=== PATIENT | female | born 2000 | race African-American/Black ===

== ENCOUNTER → 2019-04-17 10:48 | Outpatient (CLI) | payer BC, SELFPAY ==
[2019-04-17 11:19] LABS: Basophils % 0.2 % (0.1-2.0); Eosinophils # 0.1 K/mm3 (0.0-0.4); Eosinophils % 0.8 % (0.1-12.0); Hematocrit 35.9 % (37.0-47.0); Hemoglobin 13.2 g/dL (12.2-16.2); Mean Corpuscular HGB Conc 36.7 g/dL (31.8-35.4); Mean Corpuscular Hemoglobin 32.1 pg (27.0-31.2); Mean Corpuscular Volume 87.6 fl (81-99); Monocytes # 0.5 K/mm3 (0.1-1.0); Monocytes % 5.1 % (1.7-9.3); Neutrophils % 65.9 % (37.0-80.0); Platelet Count 315 K/mm3 (142-424); Red Cell Distribution Width 12.8 % (11.5-17.5); White Blood Count 10.6 K/mm3 (4.5-13.0)
[2019-04-18 11:08] LABS: Rapid Plasma Reagin Ab Titer Non Reactive (NonRea<1:1); Rubella Antibodies, IgG 1.19 index (Immune >0.99)
[2019-04-18 11:11] LABS: Hepatitis B Surface Antigen Negative (Negative); Hepatitis C Antibody <0.1 s/co ratio (0.0-0.9)
[2019-04-20 06:28] LABS: HIV Screen 4th Generation wRfx Non Reactive (Non Reactive)
[2019-04-20 19:03] LABS: Neisseria gonorrhoeae, NAA Negative (Negative)
== END ==
PROVIDERS: Visit Provider Nurse Practitioner Obstetrics & Gynecology
DX: Z34.90 Encounter for supervision of normal pregnancy, unspecified, unspecified trimester (principal)
CPT/HCPCS: 36415; 85025; 86592; 86703; 86762; 86850; 87340; 87380; 87491; 87591; G0432

== ENCOUNTER → 2019-04-26 15:13 | Outpatient (CLI) | payer BC, OTHER, SELFPAY ==
--- NOTE | 2019-04-26 15:13 | US_ITS ---
PROCEDURE: US OB <= 14 WEEKS FETUS CLINICAL INDICATION: US OB Dates Evaluate dates COMPARISON: No exams were available for comparison FINDINGS: The there is a single live fetus present. heart and body motion noted. Average ultrasound age is 13 weeks 6 days. Following parameters are obtained BPD 14 weeks 1 day, OFD 14 weeks 1 day, HC 14 weeks 0 day, AC 13 weeks 4 day, FL 13 weeks 6 day. [place]-rump length is 7.34 cm correlating to gestational age of 13 weeks 4 days. heart tones are 149 beats per minute. There is a 2.7 cm left corpus luteum cyst. IMPRESSION: Live intrauterine gestation at 13 weeks 6 days. This does not constitute a complete anatomy exam. Estimated due date by Ultrasound is 10/26/2019 Dictated by: Jareth Matos MD 04/26/2019 18:28 Electronically signed by Jareth Matos MD in [place] 04/26/2019 18:28
== END ==
PROVIDERS: PCP Family Medicine; Visit Provider Nurse Practitioner Obstetrics & Gynecology
DX: O26.841 Uterine size-date discrepancy, first trimester (principal)
CPT/HCPCS: 76801

== ENCOUNTER 2019-08-03 08:52 | Emergency (ER) | payer BC, MEDICAID, SELFPAY ==
[2019-08-03 08:53] VITALS: BP 132/66; PULSE 155; RESP 20; TEMP 36.7; O2SAT 96; BMI 32.1
--- NOTE | 2019-08-03 09:34 | HMH.EDSOB ---
ED Disposition Clinical Impression: Asthma with exacerbation, Viral URI, Viral URI with cough, Disposition: Home, Self-Care Condition on Discharge: Good Instructions: Diet, DI for Shortness of Breath Additional Instructions: Please pharmacy picking technician your nebulizer and nebulizer supplies at home medical store. Please also pharmacy picking technician your prescription. Given the fact you are short of breath and having a slight cough and some chest tightness I need you to self quarantine for the next 14 days. Prescriptions: Albuterol Sulfate [Albuterol 0.083% 2.5mg/3mL neb] 2.5 mg IH QID 12 Days #75 neb Transmission Status: Pending to [facility] #[id number] Referrals: Fritz Riddle MD [Primary Care Provider] - - Critical Care Critical Care Time: No Attestation: On 08/03/19, the high probability of a clinically significant, sudden or life threatening deterioration of the following system(s) required my full and direct attention, intervention and personal management. The time I documented below is in addition to time spent performing reported procedures but includes the following listed in this critical care notation. Medical Decision Making - Medical Records Medical records reviewed: Yes: I reviewed the patient's medical records. - Juan Inquiry Pt receiving controlled substance: No Vital Signs: 08/03/19 08:53 Temperature 98.1 F Temperature Source Oral Pulse Rate [Radial] 155 H Respiratory Rate 20 Blood Pressure [Right Arm] 132/66 Blood Pressure Mean [Right Arm] 88 Blood Pressure Source [Right Arm] Automatic Cuff Blood Pressure Position [Right Arm] Sitting 02 Sat by Pulse Oximetry 96 Oxygen Delivery Method Room Air - Lab Data Lab results reviewed: Yes: I reviewed the patient's lab results. Orders (Tests/Meds): ED MEDICATIONS Discontinued Medications Generic Name Dose Route Start Last Admin Trade Name Freq PRN Reason Stop Dose Admin Albuterol Sulfate 2.5 mg 08/03/19 09:08 08/03/19 09:12 Albuterol 0.083% 2.5mg/3ml Neb IH 08/03/19 09:09 2.5 mg ONCE ONE Administration Medical Decision Narrative: Patient received 2.5 mg albuterol inhaled via nebulizer solution. After her first nebulizer treatment she stated that the chest tightness and also the mild shortness of breath went away. She states that she does not have a nebulizer at home. Reevaluation the patient her chest exam was negative and her respiratory exam was also negative with no wheezes heard. Resp/SOB HPI - General Chief Complaint: Shortness of Breath/Dyspnea Stated Complaint: SOA Time Seen by Provider: 08/03/19 09:34 Mode of Arrival: Ambulatory Source of Information: Patient Limitations: No Limitations Description of Symptoms (Recalled from ER Triage Doc. by RN): 7 months and short of breath. States her rescue inhalers aren't working. States she just needs a neb treatment. - History of Present Illness 18-year-old female presents the ED with chest tightness and shortness of breath. Patient is a G1, P0 at 29 weeks. She does have a longstanding history of asthma. She states she has been using her inhaler at home but it just was not helping enough. Patient denies any loss of fluid. Patient denies any abdominal pain or abdominal cramping. Patient also denies any dysuria. Patient also denies any recent fever shakes or chills. Patient also denies any productive cough. Patient does states she is coughing a little more than usual. - Related Data Home Medications Medication Instructions Recorded Confirmed Fluticasone Propionate [Flonase 2 spr NS DAILY 03/05/18 06/13/19 50mcg nasal spray 16gm] acetaminophen 300 mg-codeine 30 mg 1 tab PO Q6H PRN 06/06/19 06/13/19 tablet cephalexin 500 mg capsule 500 mg PO BID 06/06/19 06/13/19 albuterol sulfate 90 mcg/actuation INHALATION 06/13/19 06/13/19 aerosol inhaler ondansetron 4 mg disintegrating PO 06/13/19 06/13/19 tablet Previous Rx's
[2019-08-03 09:44] VITALS: BP 132/66; PULSE 120; RESP 20; TEMP 36.7; O2SAT 96
== END 2019-08-03 09:47 | disposition home or self-care (01) ==
PROVIDERS: Emergency Provider Family Medicine; PCP Family Medicine
DX: J45.901 Unspecified asthma with (acute) exacerbation (principal); Z3A.29 29 weeks gestation of pregnancy; J06.9 Acute upper respiratory infection, unspecified
CPT/HCPCS: 99281

== ENCOUNTER 2020-02-02 16:31 | Emergency (ER) | payer BC, MEDICAID, SELFPAY ==
[2020-02-02 16:47] VITALS: BP 118/88; PULSE 125; RESP 24; TEMP 36.9; O2SAT 97; BMI 33.6
--- NOTE | 2020-02-02 16:55 | HMH.EDUTC ---
[facility] [place] Disposition Clinical Impression: Asthma exacerbation Qualifiers: Asthma severity: unspecified severity Asthma persistence: unspecified Qualified Code(s): J45.901 - Unspecified asthma with (acute) exacerbation Disposition: Home, Self-Care Condition on Discharge: Good Instructions: Asthma -- Adult, DI for Asthma -- Adult Additional Instructions: Drink plenty of fluids. Take tylenol or ibuprofen for pain or fever. Take the medications as directed. Follow up with your regular doctor. GO TO THE ER FOR ANY WORSENING SYMPTOMS Don't start the oral steroids until tomorrow, since you had the shot here today. Prescriptions: methylPREDNISolone [Medrol] 4 mg PO DIRECTED 6 Days #21 tab.ds.pk Transmission Status: Received by [facility] # Azithromycin [Z-Travis 250mg Tab*] 250 mg PO UD DOSE PK #6 tab Transmission Status: Received by [facility] # Referrals: Fritz Riddle MD [Primary Care Provider] - Forms: Work/School Release Time of Disposition: 17:21 Medical Decision Making - Medical Records Medical records reviewed: No: I reviewed the patient's medical records. - Juan Inquiry Pt receiving controlled substance: No Vital Signs: 02/02/20 16:47 Temperature 98.5 F Temperature Source Oral Pulse Rate [Right Brachial] 125 H Respiratory Rate 24 Blood Pressure [Right Arm] 118/88 Blood Pressure Mean [Right Arm] 98 Blood Pressure Source [Right Arm] Automatic Cuff Blood Pressure Position [Right Arm] Sitting 02 Sat by Pulse Oximetry 97 Oxygen Delivery Method Room Air - Lab Data Lab results reviewed: Yes: I reviewed the patient's lab results. Orders (Tests/Meds): ED MEDICATIONS Discontinued Medications Generic Name Dose Route Start Last Admin Trade Name Sebastianq PRN Reason Stop Dose Admin Methylprednisolone Sodium Succinate 125 mg 02/02/20 17:00 02/02/20 17:10 Methylprednisolone Sod Succ 125mg Vial IM 02/02/20 17:01 125 mg ONCE ONE Administration ORDERS Category Date Time Status Covid-19 Nasal PCR ([facility]) Routine Lab 02/02/20 17:25 Ordered [facility] [place] HPI - General Stated complaint: SOA Time Seen by Provider: 02/02/20 16:56 - History of Present Illness Provider Complaint: She states that she has a history of asthma. Over the past 2 days she has been having worsening chest congestion. She feels like she is having an exacerbation of her asthma. - Related Data Home Medications Medication Instructions Recorded Confirmed Fluticasone Propionate [Flonase 2 spr NS DAILY 03/05/18 09/12/19 50mcg nasal spray 16gm] acetaminophen 300 mg-codeine 30 mg 1 tab PO Q6H PRN 06/06/19 09/12/19 tablet albuterol sulfate 90 mcg/actuation INHALATION 06/13/19 09/12/19 aerosol inhaler ondansetron 4 mg disintegrating PO 06/13/19 09/12/19 tablet Previous Rx's Medication Instructions Recorded pediatric multivit no.79-ferrous 1 tab PO .2 tablets at once #60 tab 04/17/19 fumarate 18 mg iron chewable tablet Albuterol Sulfate [Albuterol 2.5 mg IH QID 12 Days #75 neb 08/03/19 0.083% 2.5mg/3mL neb] Azithromycin [Z-Travis 250mg Tab*] 250 mg PO UD DOSE PK #6 tab 02/02/20 methylPREDNISolone [Medrol] 4 mg PO DIRECTED 6 Days #21 02/02/20 tab.ds.pk Allergies Allergy/AdvReac Type Severity Reaction Status Date / Time No Known Allergies Allergy Verified 09/12/19 13:49 [facility] History - Hepatitis A Screen Attestation statement:: This patient has been screened for Hepatitis A risk factors. I have reviewed the patient's past medical history: Yes Medical History: Reports:: Asthma Denies:: Home Oxygen Other Surgeries: Yes: Other Amputation: No Fractures: No Comment: wisdom teeth - Social History Smoking Status: Never smoker Alcohol Intake: never Alcohol Intake Frequency:: other Substance Use Type: denies use Occupational Status: other Family Hx:: Cancer, Diabetes ROS Obtained: Yes All systems reviewed & no additional com
[2020-02-02 17:33] VITALS: BP 118/88; PULSE 125; RESP 24; TEMP 36.9; O2SAT 97
== END 2020-02-02 17:35 | disposition home or self-care (01) ==
PROVIDERS: Emergency Provider Nurse Practitioner Family; PCP Family Medicine
DX: Z20.828 Contact with and (suspected) exposure to other viral communicable diseases (principal); J45.901 Unspecified asthma with (acute) exacerbation
CPT/HCPCS: 96372; 99202; U0003

== ENCOUNTER 2020-02-02 22:09 | Emergency (ER) | payer BC, MEDICAID, SELFPAY ==
[2020-02-02 22:17] VITALS: BP 146/99; PULSE 107; RESP 14; TEMP 36.6; O2SAT 97; BMI 29.2
--- NOTE | 2020-02-02 22:23 | ECG_ITS ---
APPROVED REPORT Exam: Resting ECG HR:80 bpm ECG Measurements Heart Rate 80 AXES AR 168 P 51 QRSd 88 QRS 60 QT 368 T 47 QTc 424 Conclusion Normal sinus rhythm Normal ECG Electronically signed by : Rom Jensen, 02/08/2020 11:36:45
[2020-02-02 22:43] LABS: Microscopic, Urine URINE MICROSCOPIC (MICROSCOPIC)
--- NOTE | 2020-02-02 22:49 | HMH.EDGENADL ---
ED Disposition Clinical Impression: Asthma exacerbation Qualifiers: Asthma severity: moderate Asthma persistence: persistent Qualified Code(s): J45.41 - Moderate persistent asthma with (acute) exacerbation Disposition: Home, Self-Care Condition on Discharge: Good Instructions: DI for Asthma -- Adult Additional Instructions: Begin taking steroids and antibiotics tomorrow as prescribed. Continue using your nebulizer at home every 6 hours. Return to the emergency room for worsening shortness of breath. Follow-up with your primary care provider next week. Referrals: Fritz Riddle MD [Primary Care Provider] - - Critical Care Critical Care Time: No Attestation: On 02/02/20, the high probability of a clinically significant, sudden or life threatening deterioration of the following system(s) required my full and direct attention, intervention and personal management. The time I documented below is in addition to time spent performing reported procedures but includes the following listed in this critical care notation. Medical Decision Making - Medical Records Medical records reviewed: Yes: I reviewed the patient's medical records. - Juan Inquiry Pt receiving controlled substance: No Vital Signs: 02/02/20 22:17 02/02/20 23:31 Temperature 97.8 F Temperature Source Oral Pulse Rate 78 Pulse Rate [Right Brachial] 107 H Respiratory Rate 14 Blood Pressure [Right Arm] 146/99 H Blood Pressure Mean [Right Arm] 114 Blood Pressure Source [Right Arm] Automatic Cuff Blood Pressure Position [Right Arm] Sitting 02 Sat by Pulse Oximetry 97 Oxygen Delivery Method Room Air - Lab Data Lab results reviewed: Yes: I reviewed the patient's lab results. Lab Results 02/02/20 22:39: Urine Color Yellow, Urine Appearance Clear, Urine pH 6.5, Ur Specific [place] 1.015, Urine Protein Negative, Urine Glucose (UA) Negative, Urine Ketones Negative, Urine Blood Negative, Urine Nitrate Negative, Urine Bilirubin Negative, Urine Urobilinogen 0.2, Ur Leukocyte Esterase Negative, Urine WBC Occasional, Ur Squamous Epith Cells 3-5 02/02/20 22:39: Urine HCG, Qual Negative 02/02/20 22:42: WBC 15.3 H, RBC 4.90, Hgb 14.5, Hct 43.2, MCV 88.0, MCH 29.5, MCHC 33.5, RDW 15.0, Plt Count 412, MPV 8.0, Neut % (Auto) 88.2 H, Lymph % (Auto) 9.7 L, [place] % (Auto) 0.9 L, Eos % (Auto) 1.0, Baso % (Auto) 0.2, Neut # (Auto) 13.5 H, Lymph # (Auto) 1.5, [place] # (Auto) 0.2, Eos # (Auto) 0.2, Baso # (Auto) 0.0, Total Counted 100, Neutrophils % (Manual) 91 H, Band Neutrophils % 4.0, Lymphocytes % (Manual) 5 L, Platelet Estimate Normal, RBC Morphology Normal 02/02/20 22:42: D-Dimer 0.37 02/02/20 22:42: Sodium 141, Potassium 4.0, Chloride 105, Carbon Dioxide 23, Anion Gap 17.0 H, BUN 6 L, Creatinine 0.60, Estimated Creat Clear 210, Estimated GFR 126, Est GFR ( Amer) 153, Glucose 125 H, Calcium 10.2, Total Bilirubin 0.4, AST 53 H, ALT 64, Alkaline Phosphatase 111, Troponin I < 0.01, Total Protein 8.7 H, Albumin 5.1 H, Globulin 3.6 H, Albumin/Globulin Ratio 1.4 Result diagrams: 02/02/20 22:42 02/02/20 22:42 Orders (Tests/Meds): ED MEDICATIONS Discontinued Medications Generic Name Dose Route Start Last Admin Trade Name Freq PRN Reason Stop Dose Admin Albuterol/Ipratropium 3 ml 02/02/20 23:09 02/02/20 23:30 Albuterol/Ipratropium 3 Ml Neb IH 02/02/20 23:10 3 ml ONCE ONE Administration Methylprednisolone Sodium Succinate 125 mg 02/02/20 23:09 02/02/20 23:16 Methylprednisolone Sod Succ 125mg Vial IV 02/02/20 23:10 125 mg ONCE ONE Administration ORDERS Category Date Time Status Chest XR 2 view (NOT portable) [XR chest 2V] Stat Exams 02/02/20 22:25 Ordered Blood Culture Stat Micro 02/02/20 22:54 Received - ECG Data Tracing #1 EKG interpreted by Abraham Jeong MD: Rhythm: sinus Rate: 80 [place]ity: normal Ectopy: none Conduction: normal ST Segment Changes: none T Wave Changes: none Q Waves: none No evide
[2020-02-02 22:50] LABS: Basophils % 0.2 % (0.1-2.0); Eosinophils # 0.2 K/mm3 (0.0-0.4); Hematocrit 43.2 % (37.0-47.0); Hemoglobin 14.5 g/dL (12.2-16.2); Lymphocytes # 1.5 K/mm3 (0.7-4.5); Lymphocytes % 9.7 % (10-50); Mean Corpuscular HGB Conc 33.5 g/dL (31.8-35.4); Mean Corpuscular Hemoglobin 29.5 pg (27.0-31.2); Monocytes # 0.2 K/mm3 (0.1-1.0); Monocytes % 0.9 % (1.7-9.3); Neutrophils # 13.5 K/mm3 (1.8-7.8); Neutrophils % 88.2 % (37.0-80.0); Platelet Count 412 K/mm3 (142-424); White Blood Count 15.3 K/mm3 (4.8-10.8)
[2020-02-02 22:52] LABS: Appearance,Urine CLEAR (Clear); Bilirubin,Urine Negative (Negative); Blood, Urine Negative (Negative); Color,Urine YELLOW (Yellow); Glucose,Urine (UA) Negative (Negative); Ketones,Urine Negative (Negative); Leukocyte Esterase,Urine Negative (Negative); Nitrate,Urine Negative (Negative); PH,Urine 6.5 (5.0-8.5); Protein,Urine Negative (Negative); Specific Gravity, Urine 1.015 (1.005-1.030); Urobilinogen,Urine 0.2 EU/dl (0.2)
[2020-02-02 22:55] LABS: MANUAL DIFFERENTIAL MANUAL DIFFERENTIAL (MANUAL DIFF)
[2020-02-02 23:03] LABS: Urine Pregnancy, HCG Qual. Negative (Negative); WBC,Urine Occasional #/hpf (0-3)
[2020-02-02 23:12] LABS: Alanine Aminotransferase 64 U/L (12-78); Albumin Level 5.1 g/dl (3.5-5.0); Albumin/Globulin Ratio 1.4 (1.1-1.8); Alkaline Phosphatase 111 U/L (38-126); Aspartate Amino Transferase 53 U/L (14-36); Bilirubin,Total 0.4 mg/dl (0.2-1.3); Blood Urea Nitrogen 6 mg/dl (7-17); Calcium 10.2 mg/dl (8.4-10.2); Carbon Dioxide 23 mmol/L (22.0-30.0); Chloride 105 mmol/L (98-107); Creatinine Clearance Estimated 210 mL/min (50-200); Estimated Glomerular Filt Rate 126 ml/min (>60); GFR (African American) 153 ML/MIN (>60); Globulin 3.6 g/dL (1.3-3.2); Glucose 125 mg/dl (74-100); Sodium 141 mmol/L (136-145); Total Protein,Serum 8.7 g/dl (6.3-8.2)
[2020-02-02 23:17] LABS: D-Dimer 0.37 ug/mL (0.15-8.0)
--- NOTE | 2020-02-02 23:20 | PC.NURSE ---
REFUSED CHEST XRAY
[2020-02-02 23:21] LABS: Lymphocytes % 5 % (10-50); Neutrophils % 91 % (42-76); Platelet Estimate Normal; RBC Morphology Normal; Total Cells Counted 100
[2020-02-02 23:31] VITALS: PULSE 78
[2020-02-02 23:31] LABS: Troponin I < 0.01 ng/ml (0.00-0.034)
[2020-02-02 23:59] VITALS: BP 118/79; PULSE 81; RESP 15; TEMP 36.6; O2SAT 98
== END 2020-02-03 | disposition home or self-care (01) ==
PROVIDERS: Emergency Provider Emergency Medicine; PCP Family Medicine
DX: J45.41 Moderate persistent asthma with (acute) exacerbation (principal); Z79.899 Other long term (current) drug therapy
CPT/HCPCS: 80053; 81001; 81025; 84484; 85007; 85025; 85378; 87040; 93005; 96375; 99283; Q9967

== ENCOUNTER → 2021-04-08 19:34 | Outpatient (CLI) | payer OTHER, MEDICAID, SELFPAY | PROVIDERS: Visit Provider Nurse Practitioner Family | DX: Z20.822 Contact with and (suspected) exposure to COVID-19 (principal); J02.0 Streptococcal pharyngitis | CPT/HCPCS: C9803; U0003; U0005 ==

== ENCOUNTER → 2021-04-11 12:50 | Outpatient (CLI) | payer OTHER, MEDICAID, SELFPAY | PROVIDERS: PCP Family Medicine; Visit Provider Nurse Practitioner Family | DX: Z20.822 Contact with and (suspected) exposure to COVID-19 (principal) | CPT/HCPCS: C9803; U0003; U0005 ==

== ENCOUNTER 2023-07-15 12:53 | Emergency (ER) | payer MEDICAID, SELFPAY ==
[2023-07-15 13:20] VITALS: BP 104/61; PULSE 91; RESP 20; TEMP 37.5; O2SAT 98; BMI 35.2
--- NOTE | 2023-07-15 13:24 | ED_ITS ---
Discharge Plan Disposition Patient Disposition: Home, Self-Care Condition: Good Prescriptions Prescriptions: New azithromycin [Zithromax] 250 mg tablet 250 mg PO UD DOSE PK Qty: 6 0RF Rx Instructions: Take two (2) tablets today, then one (1) tablet days #2 thru #5 methylprednisolone 4 mg Tablets,Dose Pack 4 mg PO DIRECTED 6 Days Qty: 21 0RF Rx Instructions: Take 1 pack as directed for 6 days [id number]-[id number] [Bromfed DM] 2-30-10 mg/5 mL Syrup 5 ml PO Q6H PRN (Reason: Cough) Qty: 240 0RF guaifenesin [Mucinex] 600 mg tablet extended release 12hr 600 - 1,200 mg PO BIDP PRN (Reason: Congestion) Qty: 30 0RF No Action fluticasone propionate [Allergy Relief (fluticasone)] 50 mcg/actuation spray,suspension 1 spray intranasal DAILY Qty: 16 2RF Rx Instructions: administer into each nostril albuterol sulfate 2.5 mg /3 mL (0.083 %) solution for nebulization 2.5 mg inhalation QID 12 Days Qty: 75 0RF albuterol sulfate [ProAir HFA] 90 mcg/actuation HFA aerosol inhaler 2 inh INHALATION QID Qty: 8.5 0RF amoxicillin-pot clavulanate 875-125 mg tablet 1 tab PO BID 10 Days Qty: 20 0RF methylprednisolone [Medrol (Travis)] 4 mg tablets,dose pack See Rx Instructions PO PER PKG DIR Qty: 21 0RF Rx Instructions: PO PER PKG DIR mepppplgjtdddrq-jimjeuuni-ID [Bromfed DM] 2-30-10 mg/5 mL syrup 10 ml PO Q6H Qty: 118 0RF ondansetron 4 mg tablet,disintegrating 4 mg PO DAILY PRN (Reason: nausea and vomiting) 4 Days Qty: 7 0RF budesonide-formoterol [Symbicort] 80-4.5 mcg/actuation HFA aerosol inhaler See Rx Instructions .ROUTE .COMPLEX Qty: 10.2 2RF Dose Instruction: INHALE 2 PUFFS BY MOUTH TWICE DAILY Rx Instructions: INHALE 2 PUFFS BY MOUTH TWICE DAILY Referrals Follow up/Referrals: Provider,Referral, MD [Primary Care Provider] - See instructions Activity Restrictions/Add. Instructions Additional Instructions/Restrictions: Drink plenty of fluids. Take tylenol or ibuprofen for pain or fever. Take the medications as directed. Follow up with your regular doctor. GO TO THE ER FOR ANY WORSENING SYMPTOMS Clinical Impressions Clinical Impression: Asthma with exacerbation Stand Alone Forms Stand Alone Forms: Work/School Release Instructions Patient Instructions: DI for Asthma -- Adult Discharge [place] [facility] [place] General Stated complaint: cough, sinus pressure Time Seen by Provider: 07/15/23 13:24 History of Present Illness Provider Complaint: She states that for the past 5 days she has had worsening sinus and chest congestion. She has a productive cough. She has a history of asthma. Related Data Previous Rx's Medication Instructions Recorded ProAir HFA 90 mcg/actuation 2 inh inhalation QID Asthma #8.5 03/18/23 aerosol inhaler (albuterol sulfate) grams albuterol sulfate 2.5 mg/3 mL 2.5 mg (3 mL) inhalation QID 12 03/18/23 (0.083 %) solution for nebulization days #75 mL fluticasone propionate 50 1 spray intranasal DAILY #16 grams 03/21/23 mcg/actuation nasal spray,suspension (Allergy Relief (fluticasone)) amoxicillin 875 mg-potassium 1 tab PO BID Sinus infection 10 04/07/23 clavulanate 125 mg tablet days #20 tabs wbvhkdopvrlnvmc-mfllxwcoloeqenw-YP 10 ml PO Q6H #118 mL 04/07/23 2 mg-30 mg-10 mg/5 mL oral syrup (Bromfed DM) methylprednisolone 4 mg tablets in See Rx Instructions PO PER PKG DIR 04/07/23 a dose pack (Medrol (Travis)) #21 tabs ondansetron 4 mg disintegrating 4 mg PO DAILY PRN nausea and 04/07/23 tablet vomiting 4 days #7 tabs budesonide-formoterol HFA 80 See Rx Instructions .Route 06/02/23 mcg-4.5 mcg/actuation aerosol .COMPLEX #10.2 grams inhaler (Symbicort) azithromycin 250 mg tablet 250 mg PO UD DOSE PK #6 tabs 07/15/23 (Zithromax) tclerpcfimgcqdo-ovtaiqhcgfoxhfa-GB 5 ml PO Q6H PRN Cough #240 mL 04/05/24 2 mg-30 mg-10 mg/5 mL oral syrup (Bromfed DM) guaifenesin 600 mg tablet, 600 - 1,200 mg (1 - 2 x 600 mg) PO 07/15/23 extended release 12 hr (Mucinex) BIDP PRN Congestion #30 tabs methylprednisolone 4 mg tablets in 4 mg PO DIRECTED 6 days #21 tabs 07/15/23 a dose pack Allergies Allergy/AdvReac Type Severity Reaction Status Date / Time No Known Allergies Allergy Verified 04/07/23 13:52 [facility] Disclaimer: The information contained in this section may have been updated after the patient was seen, as this information can be updated by other users. Medical History Abscess of skin or subcutaneous tissue Asthma exacerbation Asthma with exacerbation Surgical History No significant past surgical history Family History Other No significant family history Social History Smoking Status: Never smoker alcohol intake: never substance use type: denies use current occupational status: other Travel in the last 8 weeks: None ROS Obtained: Yes All systems reviewed & no additional complaints except as documented Constitutional Constitutional: Reports poor appetite Eyes Eyes: Reports system reviewed and no additional complaints, except as documented ENT Ears, Nose, Mouth, and Throat: Reports as per HPI Cardiovascular Cardiovascular: Reports system reviewed and no additional complaints, except as documented and Denies chest pain Respiratory Respiratory: Denies shortness of breath, Reports chest congestion, Reports cough, Denies stridor and Reports wheezing Gastrointestinal Gastrointestingal: Reports system reviewed and no additional complaints, except as documented; Denies abdominal pain, diarrhea or vomiting Musculoskeletal Musculoskeletal: Reports system reviewed and no additional complaints, except as documented and Denies arthralgias Integumentary/Breasts Skin/Breast: Reports system reviewed and no additional complaints, except as documented and Denies rash Neurologic Neurologic: Denies paresthesias Allergic/Immunologic Allergic/Immunologic: Reports wheezing Physical Exam General General appearance: alert and in no apparent distress Eye Eye exam: Present normal appearance, PERRL and EOMI ENT ENT exam: Present mucous membranes moist and normal external ear exam Expanded ENT Exam External ear exam: Present normal external inspection TM/Canal exam: Bilateral TM: erythema and bulging Nose exam: Absent sinus tenderness Nasal speculum exam: Bilateral: normal Mouth exam: Present normal external inspection; Absent drooling Teeth exam: Present normal inspection Throat exam: Present tonsillar erythema and tonsillomegaly Neck Neck exam: Present normal inspection, full ROM and trachea midline; Absent tenderness, lymphadenopathy or thyromegaly Chest Chest inspection: Present normal inspection and symmetric chest wall rise; Absent tenderness or rash Respiratory Respiratory exam: Present normal lung sounds bilaterally; Absent respiratory distress, wheezes, stridor or accessory muscle use Cardiovascular Cardiovascular exam: Present regular rate, normal rhythm and normal heart sounds Abdominal Exam Abdominal exam: Present soft; Absent distention, tenderness, guarding, rebound or rigidity Extremities Exam Extremities exam: Present normal inspection, full ROM and normal capillary refill; Absent tenderness or calf tenderness Back Exam Back exam: Present normal inspection and full ROM; Absent tenderness Neurological Exam Neurological exam: Present alert and oriented X3 Psychiatric Psychiatric exam: Present normal affect and normal mood Skin Skin exam: Present warm, dry, intact and normal color Lymphatic Lymphatic Findings: no adenopathy Medical Decision Making Medical Records Medical records reviewed: No I reviewed the patient's medical records. Juan Inquiry Pt receiving controlled substance: No
[2023-07-15 13:40] VITALS: BP 104/61; PULSE 91; RESP 20; TEMP 37.5; O2SAT 98
== END 2023-07-15 13:57 | disposition home or self-care (01) ==
PROVIDERS: Emergency Provider Nurse Practitioner Family
DX: J45.901 Unspecified asthma with (acute) exacerbation (principal); R05.9 Cough, unspecified; R09.81 Nasal congestion
CPT/HCPCS: 99204; 99212; G0463